=== PATIENT | male | born 1940 | race Caucasian/White ===

== ENCOUNTER 2021-01-25 15:41 | Inpatient (IN) | payer MEDICARE, BC ==
[~2021-01-25] VITALS: Ht 172.7 cm; Wt 82.6 kg
[~2021-01-25 15:41] MED LIST: ADULT LOW DOSE81 MG PO; ARMOUR THYROID15 M1; ARMOUR THYROID60 M1 PO; ASA81BEC PO; AVODART0.5 MG PO; BRILINTA90 MG PO; CEPHALEXIN 500500 M2 PO; COLACE 100 MG100 MG PO; EFFIENT10 MG PO; HYDROCODON-ACE1 EAC7 PO; NORVASC 5 MG TAB5 MG PO; PLAVIX 75 MG TA75 M1 PO; PYRIDIUM200 M1 PO; RED YEAST RICE600 M1 PO; SIMVASTATIN40 MG PO
[2021-01-25 15:43] VITALS: BP 175/90
[2021-01-25] MEDS ORDERED: PROSCAR 5MG TABL5 M1 PO (15:59)
[2021-01-25 16:10] LABS: ABSOLUTE BASOPHILS 0.1 thou/uL (0.0-0.2); ABSOLUTE EOSINOPHILS 0.2 thou/uL (0.0-0.7); ABSOLUTE LYMPHOCYTES 1.3 thou/uL (0.8-5.3); ABSOLUTE MONOCYTES 0.6 thou/uL (0.0-1.2); ABSOLUTE NEUTROPHILS 3.8 thou/uL (1.6-8.1); BASOPHILS 0.9 %; EOSINOPHILS 3.5 %; HEMATOCRIT 45.4 % (42.0-52.0); HEMOGLOBIN 15.6 gm/dL (14.0-18.0); LYMPHOCYTES 21.7 %; MCH 31.3 pg (26.0-34.0); MCHC 34.4 g/dL (28.0-37.0); MONOCYTES 10.5 %; MPV 7.3 fl. (7.2-11.1); NUCLEATED RBCS 0 /100WBC; PLATELET COUNT* 290 thou/uL (150-400); POLYS 63.4 %; RBC 4.99 mil/uL (4.50-6.00); RDW-CV 13.3 % (10.5-14.5); WBC 6.1 thou/uL (4.0-11.0)
[2021-01-25 16:15] LABS: CALCIUM 8.8 mg/dL (8.5-10.1); CREATININE 1.2 mg/dL (0.6-1.3); POTASSIUM 3.8 mmol/L (3.5-5.1)
[2021-01-25 16:20] LABS: ALBUMIN 4.1 g/dL (3.4-5.0); TOTAL BILIRUBIN 0.4 mg/dL (<0.1-1.0); TOTAL PROTEIN 7.4 g/dL (6.4-8.2)
[2021-01-25 16:25] LABS: PROTIME 10.6 Seconds (9.20-11.50)
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
--- NOTE | 2021-01-25 18:47 | NUR ---
1846 patient went to MRI
[2021-01-25 21:35] VITALS: BP 165/92
[2021-01-25 21:58] VITALS: BP 155/119
[2021-01-25 22:01] VITALS: BP 172/108
[2021-01-25 23:00] VITALS: BP 157/89
[2021-01-25 23:31] VITALS: BP 156/90
[2021-01-26] VITALS (21 sets, daily range): BP systolic 129–197; BP diastolic 67–174
--- NOTE | 2021-01-26 04:55 | NUR ---
RECIEVED PT FROM ER AT 2145H, ON RA AND TOLERATED. NO BLEEDING AND NO FEVER NOTED. NIHSS OF 1 SEEN RECIEVING PT FROM ER. NO DECLINE OF MENTAL STATUS. PT DON'T KNOW HIS OTHER HOME MEDS AND TOLD ME HIS TAKE CARE ALL OF HIS MEDS. CONTINUE MONITORING AND TOWARDS GOALS.
[2021-01-26 08:10] LABS: CHOLESTEROL 223 mg/dL (<200); HDL CHOLESTEROL 51 mg/dL (>40); LDL CHOLESTEROL 146 mg/dL (<100); TC:HDL 4.4 Ratio (Not establshd); TRIGLYCERIDE 130 mg/dL (<150); VLDL 26 mg/dL (<40)
[2021-01-26 08:17] LABS: SERUM ASSESSMENT Clear
--- NOTE | 2021-01-26 09:52 | EKG ---
[place] [address] ELECTROCARDIOGRAM REPORT Name: SUBHASH GREEN Room: [address] IN [facility]#: [id number] Admission: 01/25/21 Attend Phys: Subhash Tenorio Discharge: Date of : 38 Date of Service: 01/25/21 1624 Report #: [id number] THIS REPORT FOR: //name// [facility] ED Test Date: 2021-01-25 Test Time: 16:24:00 Pat Name: SUBHASH GREEN Department: Room: [facility] Gender: M Drafter Structural: : 1940 Requested By: Trace Merchant Order Number: [id number] MD: Jose Alfredo Moncada Measurements Intervals [place] Rate: 63 P: 12 LA: 156 QRS: 10 QRSD: 94 T: 86 QT: 460 QTc: 471 Interpretive Statements Sinus rhythm Abnormal R-wave progression, early transition LVH with secondary repolarization abnormality Compared to ECG 09/18/2011 07:54:51 Left ventricular hypertrophy now present Atrial premature complex(es) no longer present ST (T wave) deviation no longer present Possible ischemia no longer present Prolonged QT interval no longer present Electronically Signed On 01-26-2021 9:52:02 CDT by Jose Alfredo Moncada [email or web address] <ELECTRONICALLY SIGNED> By: Jose Alfredo Moncada MD, [facility] 01/26/21 0952 1624 1624 Jose Alfredo Moncada MD, [facility] /EPI
--- NOTE | 2021-01-26 13:42 | NUR ---
Met with patient at bedside and introduced role of CM. Patient currently lives at home in a house with his . There are stairs in the in the home and patient states he has no difficulty getting up and down the stairs. Patient was independent with ADLs and driving prior to admission. Patient uses a cane and walker when needed for ambulation. No hx of O2, bipap/cpap, dialysis, BHS, infusion therapy or SNF. Hx of ARU and HH in [place], [place] when patient broke ankle 5 years ago[address] PCP is Dr. Yoseph Hendricks. Patient to remain through the weekend. PT/OT/ST consulted and neuro following post CVA. TPA was administered yesterday and once patient is 24 hours post TPA he will downgrade to tele, per Dr. GREEN to continue to follow for safe dc planning
--- NOTE | 2021-01-26 19:00 | 2DMMODE ---
[place] [address] 2 D/M-MODE ECHOCARDIOGRAM Name: SUBHASH GREEN Room: [address] IN [facility]#: [id number] Admission: 01/25/21 Attend Phys: Subhash Tenorio Discharge: Date of : 38 Date of Service: 01/26/21 1900 Report #: [id number] THIS REPORT FOR: cc: Yoseph Hendricks,Yoseph Arreguin,Jose Alfredo Goyal MD [facility] ~ APPROVED REPORT Study performed: 01/26/2021 15:20:30 EXAM: Comprehensive 2D, Doppler, and color-flow Echocardiogram Patient Location: In-Patient Room #: 005 Status: routine BSA: 1.96 HR: 87 bpm BP: 129/99 mmHg Rhythm: NSR Other Information Study Quality: Good Indications CVA/TIA Echo Enhancing Agent Indication: Rule out Shunt Agent(s) / Amount(s) Used: Agitated Saline 10 cc 2D Dimensions IVSd: 14.73 (7-11mm) LVOT Diam: 19.92 (18-24mm) LVDd: 43.41 mm PWd: 12.58 (7-11mm) Ascending Ao: 33.40 (22-36mm) LVDs: 21.55 (25-40mm) Aortic Root: 34.37 mm Volumes Left Atrial Volume (Systole) LA ESV Index: 17.90 mL/m2 Aortic Valve AoV Peak Roberto.: 1.64 m/s AO Peak Gr.: 10.73 mmHg LVOT Max P.91 mmHg AO Mean Gr.: 5.80 mmHg LVOT Mean P.87 [place] [address] 2 D/M-MODE ECHOCARDIOGRAM Name: SUBHASH GREEN Room: [address] IN ..#: [id number] Admission: 01/25/21 Attend Phys: Subhash Tenorio Discharge: Date of : 38 Date of Service: 01/26/21 1900 Report #: [id number] LVOT Max V: 1.57 m/s AO V2 VTI: 26.77 cm LVOT Mean V: 1.02 m/s IDALIA (VTI): 2.96 cm2 LVOT V1 VTI: 25.39 cm Mitral Valve E/A Ratio: 0.50 MV Decel. Time: 226.91 ms MV E Max Roberto.: 0.61 m/s MV PHT: 65.80 ms MVA (PHT): 3.34 cm2 TDI E/Lateral E': 10.17 E/Medial E': 15.25 Medial E' Roberto.: 0.04 m/s Lateral E' Roberto.: 0.06 m/s Pulmonary Valve PV Peak Roberto.: 0.96 m/s PV Peak Gr.: 3.71 mmHg Left Ventricle The left ventricle is normal size. There is normal LV segmental wall motion. Mild concentric left ventricular hypertrophy. Left ventricular systolic function is normal. The left ventricular ejection fraction is within the normal range. LVEF is 60-65%. Grade I - abnormal relaxation pattern. Right Ventricle The right ventricle is normal size. The right ventricular systolic function is normal. Atria The left atrium size is normal. The interatrial septum is intact with no evidence for an atrial septal defect. The right atrium size is normal. Aortic Valve Mild aortic valve sclerosis. No aortic regurgitation is present. There is no aortic valvular stenosis. Mitral Valve There is mitral annular calcification. The mitral valve is normal in structure. There is no mitral valve regurgitation noted. No evidence of mitral valve stenosis. Tricuspid Valve The tricuspid valve is normal in structure[place] [address] 2 D/M-MODE ECHOCARDIOGRAM Name: SUBHASH GREEN Room: [address] IN [facility]#: [id number] Admission: 01/25/21 Attend Phys: Subhash Tenorio Discharge: Date of : 38 Date of Service: 01/26/21 1900 Report #: [id number] pressure. Trace tricuspid regurgitation. Pulmonic Valve The pulmonary valve is normal in structure. Trace pulmonic regurgitation. Great Vessels The aortic root is normal in size. IVC is normal in size and collapses >50% with inspiration. Pericardium There is no pericardial effusion. <Conclusion> Mild concentric left ventricular hypertrophy. LVEF is 60-65%. Mild aortic valve sclerosis. The interatrial septum is intact with no evidence for an atrial septal defect. <ELECTRONICALLY SIGNED> By: Jose Alfredo Moncada MD, FACC 01/26/211899 99 99 Jose Alfredo Moncada MD, FACC /INF
--- NOTE | 2021-01-26 19:59 | NUR ---
1200 ASSESSMENT REMAINS THE SAME 0910 ASSESSMENT. NO CAUSES FOR CONCERNS. NIH REMAINS A 1. WILL CONTINUE TO MONITOR AND CARE PER PLAN OF CARE.
--- NOTE | 2021-01-26 20:01 | NUR ---
PATIENT REMAINS A&O X 4, PLEASANT AND COOPERATIVE WITH CARES. C/O PAIN IN LEFT ANKLE BUT STATES IT'S CHRONIC AND DOES NOT TAKE MEDICATION FOR IT. NIH REMAINS A 1, NO S/S OF BLEEDING. PATIENT EATING AND DRINKING WELL, NO ASPIRATION NOTED. PATIENT WORKED WITH PT/OT THIS AFTERNOON AND WAS CLEARED THROUGH THEM. NO FURTHER CONCERNS AT THIS TIME. WILL CONTINUE TO MONITOR AND CARE PLAN OF CARE.
[2021-01-26 21:06] LABS: GLYCOHEMOGLOBIN (HGB A1C) 5.8 % (4.8-5.6)
--- NOTE | 2021-01-27 04:15 | NUR ---
ASSUMED CARE AT 1910H, ON RA AND TOLERATED. AO X 4. NIHS OF 0. NO DISTRESS NOTED. PT WANTS TO GO HOME TODAY. CONTINUE MONITORING AND TOWARDS GOALS.
[2021-01-27 05:51] VITALS: BP 122/77
[2021-01-27 08:00] VITALS: BP 158/88
[2021-01-27] MEDS ORDERED: LIPITOR 40 MG T40 M1 PO (10:47)
[2021-01-27] MEDS ORDERED: CARVEDILOL3.125 MG PO (10:47)
[2021-01-27] MEDS ORDERED: ASA81BEC PO (10:47)
[2021-01-27 12:12] VITALS: BP 158/88
== END 2021-01-27 13:00 | disposition home or self-care (01) | DRG 63 ==
LOC: M.ERS 15:41 → M.ICU 18:47 → M.TBA-ER 18:47 → M.ICU 21:22
PROVIDERS: Emergency Medicine; Psychiatry & Neurology Neurology; ADMIT Internal Medicine; ATTEND Internal Medicine
DX: I63.9 Cerebral infarction, unspecified (principal); G83.24 Monoplegia of upper limb affecting left nondominant side; Z20.822 Contact with and (suspected) exposure to COVID-19; I25.10 Atherosclerotic heart disease of native coronary artery without angina pectoris; I10 Essential (primary) hypertension; N40.0 Benign prostatic hyperplasia without lower urinary tract symptoms; R29.810 Facial weakness; Z91.041 Radiographic dye allergy status

== ENCOUNTER 2021-03-07 17:15 | Inpatient (IN) | payer MEDICARE, BC ==
[~2021-03-07] VITALS: Ht 172.7 cm; Wt 86.2 kg
[~2021-03-07 17:15] MED LIST changes: +CARVEDILOL3.125 MG PO; +LIPITOR 40 MG T40 M1 PO; +PROSCAR 5MG TABL5 M1 PO
[2021-03-07 17:20] VITALS: BP 167/79
[2021-03-07 17:40] LABS: ABSOLUTE EOSINOPHILS 0.2 thou/uL (0.0-0.7); ABSOLUTE LYMPHOCYTES 1.4 thou/uL (0.8-5.3); ABSOLUTE MONOCYTES 0.6 thou/uL (0.0-1.2); ABSOLUTE NEUTROPHILS 3.4 thou/uL (1.6-8.1); BASOPHILS 0.7 %; HEMATOCRIT 43.8 % (42.0-52.0); HEMOGLOBIN 14.7 gm/dL (14.0-18.0); LYMPHOCYTES 25.3 %; MCH 30.9 pg (26.0-34.0); MCHC 33.5 g/dL (28.0-37.0); MCV 92.1 fL (80.0-100.0); MONOCYTES 9.8 %; MPV 7.6 fl. (7.2-11.1); NUCLEATED RBCS 0 /100WBC; PLATELET COUNT* 265 thou/uL (150-400); POLYS 60.2 %; RBC 4.75 mil/uL (4.50-6.00); RDW-CV 13.7 % (10.5-14.5); WBC 5.7 thou/uL (4.0-11.0)
[2021-03-07 17:46] LABS: CALCIUM 9.1 mg/dL (8.5-10.1); CREATININE 1.2 mg/dL (0.6-1.3); POTASSIUM 3.7 mmol/L (3.5-5.1)
[2021-03-07 17:51] LABS: ALBUMIN 3.8 g/dL (3.4-5.0); TOTAL BILIRUBIN 0.6 mg/dL (<0.1-1.0); TOTAL PROTEIN 7.3 g/dL (6.4-8.2)
[2021-03-07 22:30] VITALS: BP 136/86
[2021-03-08] VITALS (7 sets, daily range): BP systolic 127–163; BP diastolic 67–93
--- NOTE | 2021-03-08 16:39 | EKG ---
[place] [address] ELECTROCARDIOGRAM REPORT Name: STANLEY GREEN Room: [address] ADM IN [facility]#: [id number] Admission: 03/08/21 Attend Phys: Cassie Parisi, Discharge: Date of : 38 Date of Service: 03/07/21 1722 Report #: [id number] THIS REPORT FOR: //name// [facility] ED Test Date: 2021-03-07 Test Time: 17:22:47 Pat Name: STANLEY PETER Department: Room: [facility] Gender: M Transition Teacher: ESAU : 1940 Requested By: Yosi Key Order Number: [id number] MD: Jose Alfredo Moncada Measurements Intervals [place] Rate: 71 P: 27 AR: 165 QRS: 39 QRSD: 112 T: 116 QT: 420 QTc: 457 Interpretive Statements Sinus rhythm LVH with IVCD and secondary repol abnrm Compared to ECG 01/25/2021 16:24:00 no change Electronically Signed On 03-08-2021 16:38:52 CHAIR CAR ATTENDANT by Jose Alfredo Moncada [email or web address] <ELECTRONICALLY SIGNED> By: Jose Alfredo Moncada MD, FACC 03/08/21 1638 1722 172 Jose Alfredo Moncada MD, [facility] /EPI
[2021-03-09] VITALS (18 sets, daily range): BP systolic 113–143; BP diastolic 59–90
[2021-03-09 04:06] LABS: ABSOLUTE LYMPHOCYTES 1.3 thou/uL (0.8-5.3); ABSOLUTE NEUTROPHILS 4.1 thou/uL (1.6-8.1); MPV 7.6 fl. (7.2-11.1); POLYS 64.8 %
[2021-03-09 04:08] LABS: ABSOLUTE EOSINOPHILS 0.2 thou/uL (0.0-0.7); ABSOLUTE MONOCYTES 0.7 thou/uL (0.0-1.2); BASOPHILS 0.6 %; EOSINOPHILS 3.4 %; HEMATOCRIT 43.8 % (42.0-52.0); HEMOGLOBIN 14.8 gm/dL (14.0-18.0); MCH 31.3 pg (26.0-34.0); MCHC 33.9 g/dL (28.0-37.0); MCV 92.5 fL (80.0-100.0); MONOCYTES 11.2 %; NUCLEATED RBCS 0 /100WBC; PLATELET COUNT* 281 thou/uL (150-400); RBC 4.74 mil/uL (4.50-6.00); RDW-CV 13.7 % (10.5-14.5); WBC 6.4 thou/uL (4.0-11.0)
[2021-03-09 04:25] LABS: ANION GAP 7 mmol/L (7-16); BUN 15 mg/dL (7-18); CHLORIDE 106 mmol/L (98-107); CHOLESTEROL 140 mg/dL (<200); CO2 29 mmol/L (21-32); GLUCOSE 100 mg/dL (70-99); HDL CHOLESTEROL 62 mg/dL (>40); LDL CHOLESTEROL 64 mg/dL (<100); POTASSIUM 4.4 mmol/L (3.5-5.1); SODIUM 142 mmol/L (136-145); TC:HDL 2.3 Ratio (Not establshd); TRIGLYCERIDE 72 mg/dL (<150); VLDL 14 mg/dL (<40)
[2021-03-09 04:38] LABS: SERUM ASSESSMENT CLEAR
--- NOTE | 2021-03-09 10:51 | EKG ---
[place] [address] ELECTROCARDIOGRAM REPORT Name: STANLEY GREEN Room: [address] IN [facility]#: [id number] Admission: 03/08/21 Attend Phys: Cassie Parisi, Discharge: Date of : 38 Date of Service: 03/09/21 0807 Report #: [id number] THIS REPORT FOR: //name// [facility] Test Date: 2021-03-09 Test Time: 08:07:44 Pat Name: STANLEY GREEN Department: Room: [address] Gender: M Napping Machine Operator: KF : 1940 Requested By: Jose Alfredo Moncada Order Number: [id number] Ally MD: Jose Alfredo Moncada Measurements Intervals [place] Rate: 69 P: 14 IA: 160 QRS: 19 QRSD: 109 T: 110 QT: 441 QTc: 473 Interpretive Statements Sinus rhythm LVH with secondary repolarization abnormality Compared to ECG 03/07/2021 17:22:47 no change Electronically Signed On 03-09-2021 10:50:36 PHARMACEUTICAL SALES by Jose Alfredo Moncada [email or web address] <ELECTRONICALLY SIGNED> By: Jose Alfredo Moncada MD, [facility] 03/09/21 1050 0807 0807 Jose Alfredo Moncada MD, [facility] /EPI
--- NOTE | 2021-03-09 10:53 | EKG ---
[place] [address] ELECTROCARDIOGRAM REPORT Name: STANLEY GREEN Room: [address] IN [facility].#: [id number] Admission: 03/08/21 Attend Phys: Cassie Parisi, Discharge: Date of : 38 Date of Service: 03/09/21 1041 Report #: [id number] THIS REPORT FOR: //name// [facility] Test Date: 2021-03-09 Test Time: 10:41:50 Pat Name: STANLEY PETER Department: Room: [address] Gender: M Lacing Cutter: : 1940 Requested By: Jose Alfredo Moncada Order Number: [id number] Reading MD: Jose Alfredo Moncada Measurements Intervals [place] Rate: 67 P: 11 HI: 156 QRS: 28 QRSD: 108 T: 102 QT: 457 QTc: 483 Interpretive Statements Sinus rhythm Abnormal R-wave progression, early transition Abnrm T, consider ischemia, anterolateral lds Compared to ECG 03/09/2021 08:07:44 Left ventricular hypertrophy no longer present Electronically Signed On 03-09-2021 10:53:35 EXPERIMENTAL MECHANIC ELECTRICAL by Jose Alfredo Moncada [email or web address] <ELECTRONICALLY SIGNED> By: Jose Alfredo Moncada MD, FACC 03/09/21 1053 1041 1041 Jose Alfredo Moncada MD, FACC /EPI
[2021-03-10 00:27] VITALS: BP 119/53
[2021-03-10 04:19] LABS: HEMATOCRIT 41.6 % (42.0-52.0); HEMOGLOBIN 14.2 gm/dL (14.0-18.0); MCH 31.2 pg (26.0-34.0); MCHC 34.1 g/dL (28.0-37.0); MCV 91.5 fL (80.0-100.0); MPV 7.6 fl. (7.2-11.1); RBC 4.54 mil/uL (4.50-6.00); RDW-CV 13.8 % (10.5-14.5); WBC 7.3 thou/uL (4.0-11.0)
[2021-03-10 04:28] LABS: CALCIUM 8.8 mg/dL (8.5-10.1); CREATININE 1.1 mg/dL (0.6-1.3); POTASSIUM 3.7 mmol/L (3.5-5.1)
[2021-03-10 04:49] VITALS: BP 142/60
[2021-03-10 09:00] VITALS: BP 147/80
--- NOTE | 2021-03-10 12:13 | CARD ---
[address] [address] CARDIAC CATH REPORT Name: STANLEY GREEN Room: [address] IN [facility].#: [id number] Admission: 03/08/21 Attend Phys: Cassie Parisi MD Discharge: Date of : 39 Report #: [id number] THIS REPORT FOR: cc: Yoseph Hendricks Vincent DO Blick, David R. MD [facility] ~ APPROVED REPORT Study performed: 03/09/2021 08:04:57 Patient Details Patient Status: In-Patient Room #: The patient is a 81 year-old male Event Personnel Jose Alfredo Moncada Line Helper, Hiram Hagen RN RN, Jayy Carver ScrubPanchito Jessie RTR Monitor Procedures Performed Art Access - R radial artery Left Heart Cath w/or w/o Coronaries CATIA Revasc Chronic Ttl Occl Single LAD Hemostasis with Hemoband Indication Abnormal ECG, Unstable angina , Chest pain Risk Factors Arterial Hypertension, Hypercholesterolemia, Coronary Artery Disease Previous Procedures/Diagnoses Previous PCI Admission/Lab Medications/Medications given during procedure Glycoprotein IllbIlla Inhibitors, Heparin Unfract., Oxygen Nasal cannula 2 l per min, 0.9% Sodium Chloride IV 100 ml per hr, Lidocaine Subcut 4 ml, Nitroglycerin IA 400 mcg, Verapamil IA 5 mg, Heparin IV 4300 units, Heparin IV 2000 units, Aggrastat IV 8.6 ml, Plavix PO 600 mg Procedure Narrative The patient was brought urgently to the Cardiac Catheterization Laboratory and was prepped and draped in [place] [address] CARDIAC CATH REPORT Name: STANLEY GREEN Room: [address]#: [id number] Admission: 03/08/21 Attend Phys: Cassie Parisi MD Discharge: Date of : 39 Report #: [id number] wrist was infiltrated with 2% Lidocaine subcutaneous anesthesia. IV conscious sedation was used throughout procedure with appropriate monitoring and was performed in the presence of a registered nurse who was an independent trained observer other than the physician performing the procedure. A Slender Glidesheath sheath was inserted into the right radial artery. Coronary angiography was performed using coronary diagnostic catheters. The right coronary system was accessed and visualized with a 3 DRC catheter. The left coronary system was accessed and visualized with a Diagnostic 6 Fr JL 4 catheter. The left ventricle was accessed and visualized with a Diagnostic 6 Fr Pigtail catheter. Left ventricular/Aortic Valve gradient assessed via catheter pullback. Left ventriculogram was performed in MARCH projection. Closure device was deployed with a 6 Fr Vasc-Band Reg 24cm. The patient tolerated the procedure well and there were no complications associated with the procedure. There was no hematoma. Unable to cannulate RCA with JR4 catheter. 3 DRC catheter used Intraoperative Conscious Sedation Sedation start time: 09:21 Case end Time: 10:17 Versed 1 mg Fluoro Time: 13.0 minutes Dose: DAP [id number] cGycm2 2337 mGy Contrast Type and Amount: Omnipaque 165 mL Coronary Angiography The patient's coronary anatomy is co- dominant. Diagnostic Cath Left Main 0% stenosis LAD Proximal lad stent appearred acutely 100% occluded. Distal LAD filled retrograde from collaterals from the distal RCA Circumflex 0% stenosis Right Coronary 60% proximal stenosis R PDA 80% proximal stenosis Ramus medium sized vessel with 80% mid stenosis Left Ventriculography The left ventricular ejection fraction is estimated to be 40-45%. Left ventricular wall motion abnormalities are present. There is no mitral insufficiency. moderate hypokinesis noted of the distal antero[place] [address] CARDIAC CATH REPORT Name: STANLEY GREEN Room: [address] IN [facility]#: [id number] Admission: 03/08/21 Attend Phys: Cassie Parisi MD Discharge: Date of : 39 Report #: [id number] Hemodynamics The aortic pressure is 134/77 mmHg with a mean of 100 mmHg. The left ventricular pressure is 132/17 mmHg with a mean of mmHg. The left ventricular end diastolic pressure is 23 mmHg. There was no gradient across the aortic valve upon pullback. Pullback from the left ventricle to the aorta revealed no gradient across the aortic valve. PCI Technique Lesion Anticoagulation was achieved with Heparin. bolus of iv aggrastat given Percutaneous coronary intervention was performed on the proximal left anterior descending artery segment. The lesion stenosis prior to intervention was 100% with ELSIE 0 flow. A 6F XB LAD 3.5 Guide Catheter was used to engage the left ostium. A Choice PT Wire 182cm Interventional Guidewire was used to cross the lesion. BALLOON DILATION A Balloon catheter Trek RX 2.5 X 8 was inserted and inflated up to 14.00atm for 13seconds. Repeat angiography revealed the following post-dilatation results: 60% stenosis. Additional Inflation: 10.00atm for 26seconds. Additional Inflation: 16.00atm for 7seconds. Unable to cross occlusion with a BMW wire. Reperfusion of the LAD revealed a mid LAD stent that was 100% occluded. STENT DEPLOYMENT A drug-eluting stent [place] RX Stent 2.46y32bs was inserted and inflated up to 8.00atm for 9seconds. Repeat angiography revealed the following post-stent deployment results: 0% stenosis. Additional Inflation: 10.00atm for 13seconds. Additional Inflation: 11.00atm for 6seconds. Final angiography reveals 0 % stenosis with ELSIE 3 flow. PCI Technique Lesion 2 Percutaneous Coronary Intervention was performed on the mid left anterior descending artery segment. Percutaneous coronary intervention was performed on the mid left anterior descending artery segment. The lesion stenosis prior to intervention was 100% with ELSIE 0 flow. A xblad3.5 Guide Catheter was used to engage the lm ostium. Balloon Dilation Unable to cross the occlusion with the choice PT guide wire, suggesting the occlusion was chronic. Additional attempts at crossing the occlusion were abandoned and the patient was asymptomatic at the [address] [address] CARDIAC CATH REPORT Name: STANLEY GREEN Room: [address] IN [facility].#: [id number] Admission: 03/08/21 Attend Phys: Cassie Parisi MD Discharge: Date of : 38 Report #: [id number] time. Final angiography reveals 100 % stenosis with ELSIE 0 flow. Conclusion 1. Acute occlusion of a stent in the proximal LAD. 2. successful placement of a drug eluting stent in the proximal LAD. 3. 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 4. Unsuccessful PTCA of the chronic occlusion in the mid LAD. 5. LVEF 40-45% Recommendations Cardiac Rehabilitation Referral Aggressive Medical Therapy Medications Administered Clopidogrel <ELECTRONICALLY SIGNED> By: Jose Alfredo Moncada MD, [facility] 03/10/21 121 11 1212Dmaria elena Moncada MD, FAC /INF
--- NOTE | 2021-03-10 12:32 | EKG ---
[place] [address] ELECTROCARDIOGRAM REPORT Name: STANLEY GREEN Room: [address] IN [facility]#: [id number] Admission: 03/08/21 Attend Phys: Cassie Parisi, Discharge: Date of : 38 Date of Service: 03/10/21 1054 Report #: [id number] THIS REPORT FOR: //name// [facility] Test Date: 2021-03-10 Test Time: 10:54:38 Pat Name: STANLEY GREEN Department: Room: [address] Gender: M Medical Professionals: DARY : 1940 Requested By: Jose Alfredo Moncada Order Number: [id number] Ally MD: Jose Alfredo Moncada Measurements Intervals [place] Rate: 73 P: 11 ME: 159 QRS: 17 QRSD: 93 T: 103 QT: 417 QTc: 460 Interpretive Statements Sinus rhythm LVH with secondary repolarization abnormality Compared to ECG 03/09/2021 10:41:50 Left ventricular hypertrophy now present Electronically Signed On 03-10-2021 12:32:17 BAR EXAMINER by Jose Alfredo Moncada [email or web address] <ELECTRONICALLY SIGNED> By: Jose Alfredo Moncada MD, FACC 03/10/21 1232 1054 1054 Jose Alfredo Moncada MD, FAC /EPI
[2021-03-10 13:51] VITALS: BP 147/80
--- NOTE | 2021-03-14 09:07 | CON ---
[address] [address] CONSULTATION Name: STANLEY GREEN Room: [address] IN [facility].#: [id number] Admission: 03/08/21 Attend Phys: Cassie Parisi MD Discharge: 03/10/21 Date of : 38 Report #: [id number] THIS REPORT FOR: cc: Yoseph Hendricks,Jose Alfredo Gunter MD [facility] ~ cc: Yoseph Hendricks DO DATE OF CONSULTATION: 03/08/2021 CARDIOLOGY CONSULTATION HISTORY OF PRESENT ILLNESS: The patient is an 81-year-old white male who I was asked to see in the hospital after he complained of chest pain. The patient notes in 2012, he had an abnormal nuclear stress test and underwent a cardiac catheterization by Dr. Jurado and he was found to have coronary artery disease. Dr. Borja placed 2 coronary stents at that time. He has done well since that time. He currently sees a rn manager in [place], where he spends the winter. Couple years ago, he underwent a cardiac catheterization in [place] and was told the stent was widely patent. He has done well since that time until yesterday, he was working at home when he felt a discomfort in his shoulders and into his arms. His brought him to the hospital last night and he was admitted. Today, he got up to the bathroom. While sitting on the toilet, he felt an episode of chest pressure, it last about 10 minutes and resolved. Cardiology consultation requested. He denied the pain being related to food. He has had no recent fever, cough, trauma to his chest or rash. He does not exercise on a regular basis, but denies any history of exertional dyspnea, palpitations, syncope, peripheral edema. PAST MEDICAL HISTORY: He has had a previous tonsillectomy, TURP, cataracts. Apparently 3 weeks ago, he presented with left arm numbness, he was felt to have a stroke. He was sent home on aspirin, carvedilol, Lipitor. OTHER MEDICATIONS: Include Proscar and Synthroid. ALLERGIES: He had a previous reaction after receiving a pharmacologic nuclear stress test in the past. FAMILY HISTORY: His father had bypass surgery. SOCIAL HISTORY: He is . He and his live in [place], [place]. He spends his thompson in [place]. He quit smoking years ago. He used to abuse alcohol. No longer drinks excessive alcohol. REVIEW OF SYSTEMS: He had no history of asthma. [place] [address] CONSULTATION Name: STANLEY GREEN Room: [address]#: [id number] Admission: 03/08/21 Attend Phys: Cassie Parisi MD Discharge: 03/10/21 Date of : 38 Report #: [id number] TPA when he had a stroke 3 weeks ago. No history of liver disease, kidney disease, chronic skin condition. He had a melanoma removed in the past. No history of psychiatric illness. PHYSICAL EXAMINATION: GENERAL: Revealed an elderly male, lying in bed, he appeared in no distress. VITAL SIGNS: He had a blood pressure of 120/70, pulse 60, he is afebrile. HEENT: He was anicteric. Conjunctivae pink. Mucous membranes moist. NECK: Neck veins nondistended. No carotid bruits. Neck supple. CHEST: Clear to auscultation. HEART: Regular rate and rhythm. ABDOMEN: Soft. EXTREMITIES: Had no edema. Dorsalis pedis pulse 2+ bilaterally. SKIN: Cool and dry. NEUROLOGIC: Nonfocal. DIAGNOSTIC DATA: His ECG last night showed a sinus rhythm with nonspecific T-wave changes. His workup in the Emergency Room last night, the patient had a portable chest x-ray that showed normal heart size, clear lung martinez. He actually had a CT scan of the chest using a PE protocol that showed no pulmonary embolus, benign lung nodule. He had a carotid Doppler study performed in January that showed moderate plaque formation with no significant stenosis. LABORATORY DATA: His lab work, sodium 141, creatinine 1.2. High-sensitivity troponin was only 20. In January, his cholesterol was 223, triglyceride 130, HDL 51, LDL 146. His hematocrit 43.8. COVID antigen stat test was negative. IMPRESSION AND RECOMMENDATIONS: 1. Unstable angina. Previous stent. Recommend cardiac catheterization. 2. Hyperlipidemia. The patient is on a statin drug. 3. Hypertension. The patient on carvedilol. 4. Recent stroke. Carotid stenosis noted. <ELECTRONICALLY SIGNED> By: Jose Alfredo Moncada MD, FACC 03/14/21 0907 1402 1506Jose Alfredo Moncada MD, FACC /nt
== END 2021-03-10 14:00 | disposition home or self-care (01) | DRG 246 ==
LOC: M.ERS 17:15 → M.TBA-ER 18:26 → M.ORTHSURG 03-08 11:27 → M.TBA-ER 03-08 11:27 → M.ORTHSURG 03-08 12:38
PROVIDERS: Internal Medicine; Internal Medicine Cardiovascular Disease; Physician Assistant; ADMIT Internal Medicine; ATTEND Internal Medicine
DX: I25.110 Atherosclerotic heart disease of native coronary artery with unstable angina pectoris (principal); I50.43 Acute on chronic combined systolic (congestive) and diastolic (congestive) heart failure; T82.855A Stenosis of coronary artery stent, initial encounter; E03.9 Hypothyroidism, unspecified; F41.9 Anxiety disorder, unspecified; I11.0 Hypertensive heart disease with heart failure; Z86.73 Personal history of transient ischemic attack (TIA), and cerebral infarction without residual deficits; Z20.822 Contact with and (suspected) exposure to COVID-19; Z95.5 Presence of coronary angioplasty implant and graft; Z90.49 Acquired absence of other specified parts of digestive tract; E78.5 Hyperlipidemia, unspecified; Z91.041 Radiographic dye allergy status